=== PATIENT | male | born 1970 | race Caucasian/White ===

== ENCOUNTER 2021-05-05 19:25 | Outpatient (REF) | payer OTHER, SELFPAY ==
--- NOTE | ~2021-05-05 | MR_ITS ---
EXAMINATION: MR BRAIN WITHOUT CONTRAST CLINICAL INFORMATION: Intermittent numbness in right arm. COMPARISON: None. TECHNIQUE: Multiplanar, multisequence imaging of the brain was performed without contrast. Limited study with motion artifacts FINDINGS: No diffusion abnormalities are identified to suggest an acute or subacute infarct. The ventricles are normal in size. No mass effect or midline shift is seen. No brain parenchymal signal abnormality is noted. No extra-axial fluid collections are seen. The brainstem and cerebellum are normal. The gradient refocused acquisition is normal. The craniovertebral junction, marrow signal, and midline structures are normal. The major intracranial flow voids at the level of the [place] are preserved. The dural venous sinus flow voids are maintained. The mastoid air cells are well aerated. There is mild mucosal thickening in the ethmoid sinus air cells. MR/MR head/brain wo con IMPRESSION: Limited normal MRI of the brain. No acute process.
== END 2021-05-05 19:26 | disposition home or self-care (01) ==
LOC: HO.MRI 19:25
PROVIDERS: PCP Internal Medicine; Visit Provider Internal Medicine
DX: G45.9 Transient cerebral ischemic attack, unspecified (principal)
CPT/HCPCS: 70551

== ENCOUNTER 2021-05-26 14:17 | Outpatient (REF) | payer OTHER, SELFPAY ==
--- NOTE | ~2021-05-26 | US_ITS ---
EXAMINATION: US EXTRACRANIAL CAROTID DUPLEX, BILATERAL CLINICAL INFORMATION: TIA COMPARISON: None TECHNIQUE: Real-time ultrasound and Doppler techniques (integrating B-mode 2-D vascular images, Doppler spectral analysis and color-flow Doppler imaging) were utilized to interrogate the extracranial carotid arteries, the vertebral arteries and proximal subclavian arteries bilaterally. The degree of stenosis is determined by criteria similar to NASCET. FINDINGS: Right Side: 1. There is no significant atherosclerotic plaque seen in the bifurcation/proximal ICA region. 2. The common carotid artery PSV proximally is 140 cm/s and distally 82 cm/s. 3. The proximal internal carotid artery velocities are 62 cm/s systolic and 20 cm/s diastolic. 4. The proximal external carotid artery PSV is 95 cm/s. 5. The vertebral artery shows antegrade flow. 6. The subclavian artery waveforms are normal. Left Side: 1. There is no significant atherosclerotic plaque seen in the bifurcation/proximal ICA region. 2. The common carotid artery PSV proximally is 155 cm/s and distally 86 cm/s. 3. The proximal internal carotid artery velocities are 60 cm/s systolic and 12 cm/s diastolic. 4. The proximal external carotid artery PSV is 58 cm/s. 5. The vertebral artery shows antegrade flow. 6. The subclavian artery waveforms are normal. US/US carotid duplex BI IMPRESSION: 1. RIGHT: Normal right internal carotid artery without atherosclerotic plaque or hemodynamically significant stenosis. 2. LEFT: Normal left internal carotid artery without atherosclerotic plaque or hemodynamically significant stenosis.
== END 2021-05-26 14:18 | disposition home or self-care (01) ==
LOC: HO.US 14:17
PROVIDERS: Visit Provider Internal Medicine
DX: G45.9 Transient cerebral ischemic attack, unspecified (principal)
CPT/HCPCS: 93880

== ENCOUNTER 2022-04-18 08:33 | Day surgery (SDC) | payer OTHER, SELFPAY ==
[2022-04-11 15:44] VITALS: BMI 36.9
--- NOTE | 2022-04-17 09:09 | HO.ANESPROP2 ---
Documented by User: Anna Dickson NP 04/17/22 09:09 HPI - Anesthesia Eval Consult details Narrative: 51yo M for Colonoscopy [facility] Past Medical History Medical History Constipation Depression Diabetes Elevated cholesterol TSERING (obstructive sleep apnea) Peripheral neuropathy Smoker Social History Social History Patient Tobacco Use Status: Current everyday Tobacco user Are you DNR?: No Advance Directives: No Advance Directives Information Provided: Yes Nutrition Risks: No Nutritional Risk Meds Allergies Allergy/AdvReac Type Severity Reaction Status Date / Time No Known Allergies Allergy Unverified 07/15/20 16:04 [No Known Allergies*] Home Medications Medication Instructions Recorded Confirmed Last Taken Type betamethasone, augmented 0.05 % applic topical BID 07/31/20 07/31/20 Unknown History topical cream hydrocortisone 2.5 % topical cream applic topical BID PRN Rash 07/31/20 07/31/20 Unknown History ibuprofen 600 mg tablet 600 mg PO Q8H 07/31/20 07/31/20 Unknown History sertraline 25 mg tablet 25 mg PO QAM 07/31/20 07/31/20 Unknown History aspirin 81 mg tablet,delayed 81 mg PO DAILY 04/11/22 04/11/22 04/15/22 History release dulaglutide 4.5 mg/0.5 mL 4.5 mg subcut QWEEK 04/11/22 04/11/22 Unknown History subcutaneous pen injector (Trulicity) fenofibrate nanocrystallized 145 145 mg PO DAILY 04/11/22 04/11/22 Unknown History mg tablet gabapentin 300 mg capsule 300 mg PO DAILY 04/11/22 04/11/22 Unknown History metformin 500 mg tablet 500 mg PO DAILY 04/11/22 04/11/22 Unknown History methadone 5 mg/5 mL oral solution 10 mg PO BID 04/11/22 04/18/22 04/17/22 History Exam Exam Date and Time: April 17, 2022908 Height,Weight and Vital Signs: Height 6 ft 1 in Weight 127.006 kg Assessment and Plan Assessment Anesthesia Assessment: Chart Reviewed Documented by User: Kalli Gurrola MD 04/18/22 10:03 [facility] Past Medical History Medical History Constipation Depression Diabetes Elevated cholesterol TSERING (obstructive sleep apnea) Peripheral neuropathy Smoker Family History Family history of problems with anesthesia: No Surgical History History of Problems with Anesthesia: No Social History Social History Patient Tobacco Use Status: Current everyday Tobacco user Are you DNR?: No Advance Directives: No Advance Directives Information Provided: Yes Nutrition Risks: No Nutritional Risk Meds Allergies Allergy/AdvReac Type Severity Reaction Status Date / Time No Known Allergies Allergy Unverified 07/15/20 16:04 [No Known Allergies*] Home Medications Medication Instructions Recorded Confirmed Last Taken Type betamethasone, augmented 0.05 % applic topical BID 07/31/20 07/31/20 Unknown History topical cream hydrocortisone 2.5 % topical cream applic topical BID PRN Rash 07/31/20 07/31/20 Unknown History ibuprofen 600 mg tablet 600 mg PO Q8H 07/31/20 07/31/20 Unknown History sertraline 25 mg tablet 25 mg PO QAM 07/31/20 07/31/20 Unknown History aspirin 81 mg tablet,delayed 81 mg PO DAILY 04/11/22 04/11/22 04/15/22 History release dulaglutide 4.5 mg/0.5 mL 4.5 mg subcut QWEEK 04/11/22 04/11/22 Unknown History subcutaneous pen injector (Trulicity) fenofibrate nanocrystallized 145 145 mg PO DAILY 04/11/22 04/11/22 Unknown History mg tablet gabapentin 300 mg capsule 300 mg PO DAILY 04/11/22 04/11/22 Unknown History metformin 500 mg tablet 500 mg PO DAILY 04/11/22 04/11/22 Unknown History methadone 5 mg/5 mL oral solution 10 mg PO BID 04/11/22 04/18/22 04/17/22 History Exam Airway Mallampati Class: II TM Dist: >3cm Neck ROM: Full Assessment and Plan Assessment Anesthesia Assessment: Anesthesia Plan Discussed Final Anesthetic Review Family History of Problems with Anesthesia: No History of Problems with Anesthesia: No NPO: Yes ASA Class: III Final Preanesthetic Review: No Changes in Pt Med Stat, Meds/Allgs Chart Reviewed, Consent Obtained/Reviewed and Anes Risks/Benef Reviewed Patient Risk: Low Procedure Risk: Low Anesthetic Plan Anesthetic Plan: MAC: Disposition: Standard PACU
[2022-04-18 09:02] VITALS: BP 130/73; PULSE 67; RESP 20; TEMP 36.2; O2SAT 98
--- NOTE | 2022-04-18 09:15 | PC.NURSE ---
ls wheezes lower bases pt will receive resp tx
[2022-04-18] MEDS: Albuterol Sulfate (0.083%) 2.5 MG/3 ML VIAL.NEB INHALE (09:17)
[2022-04-18 09:19] VITALS: PULSE 60; RESP 16; O2SAT 100
[2022-04-18] MEDS: Lactated Ringers 1,000 ML 100 ML IVCONT (09:44)
[2022-04-18 10:06] LABS: Glucose, Whole Blood 122 mg/dL (60-115)
--- NOTE | 2022-04-18 10:07 | MHC.SHP ---
Pre-Procedural Eval Section A Date of Service: 04/18/22 Section B Chief Complaint: screening Details of Present Illness: see H&P no changes Relevant Family History (Specify if Yes): No Relevant Social History: None Medical History: No relevant PMH History of Previous Operations: No relevant previous surgery Allergies: Allergies Allergy/AdvReac Type Severity Reaction Status Date / Time No Known Allergies Allergy Unverified 07/15/20 16:04 [No Known Allergies*] Review of Systems Sugical H&P ROS: Negative: Constitution, Cardiovascular, Respiratory, Neurological, Psychiatric, Hem-Onc, Allergic/Immunologic, Gastrointestinal, Genitourinary, Musculoskeletal, Integumentary, Endocrine and Eyes/Ears/Nose/Throat Exam Surgical H&P Exam: Normal: HEENT, Normal: Heart, Normal: Lungs, Normal: Extremities, Normal: Abdomen, Normal: Skin and Normal: Neurological Plan Diagnosis/Plan: Unchanged I have reviewed the history and physical and performed a pertinent physical examination on my patient. No changes have occurred unless specified.
[2022-04-18 10:55] VITALS: BP 100/64; PULSE 75; RESP 18; TEMP 36.8; O2SAT 97
--- NOTE | 2022-04-18 10:55 | P.BOP_ITS ---
Brief Operative Note Date of Service: 04/18/22 Pre-op diagnosis: screening Post-op diagnosis: same Surgeon: Nj Finnegan Anesthesia: MAC Was an [employer] used for this Procedure?: No Estimated blood loss (mL): 0 Pathology: none sent Condition: stable Disposition: PACU
[2022-04-18 11:10] VITALS: BP 134/81; PULSE 61; RESP 18; TEMP 36.7; O2SAT 97
--- NOTE | 2022-04-18 12:39 | OP_ITS ---
SURGEON: Nj Finnegan MD INDICATIONS: Colon cancer screening. PREOPERATIVE DIAGNOSIS: POSTOPERATIVE DIAGNOSIS: PROCEDURE PERFORMED: Colonoscopy to the cecum. ESTIMATED BLOOD LOSS: COMPLICATIONS: ANESTHESIA: ASSISTANTS: SPECIMENS: MEDICATIONS: Monitored anesthesia care. DESCRIPTION OF PROCEDURE: The history and physical were performed. The risks and benefits of the procedure were explained to the patient. Informed consent was obtained. The patient was placed in the left lateral decubitus position. A digital rectal exam was performed and was found to be normal. The Olympus pediatric video colonoscope was introduced into the rectum and advanced to the cecum without difficulty. The cecum was identified by transillumination, palpation, and identification of ileocecal valve. Examination was performed. The scope was removed. He tolerated the procedure well and was taken to recovery area in stable condition. FINDINGS: The terminal ileum was not examined. The visualized colonic mucosa was normal. There was a large amount of liquid and some formed stool left, which limited the sensitivity examination for detection of small polyps. This was washed and suctioned as best possible, but the exam was basically nondiagnostic for small polyps because of the retained stool especially in the cecum, descending colon and sigmoid colon. Retroflexed examination showed internal hemorrhoids. There was some sigmoid diverticulosis to a mild degree. IMPRESSION: Colonoscopy negative for polyps, but limited exam as above. RECOMMENDATION: 1. Follow up as needed. 2. Repeat colonoscopy in 6-12 months with a 2 day prep. MD ABDIRIZAK Hays/BARBIEL / [phone]
== END 2022-04-18 11:44 | disposition home or self-care (01) ==
PROVIDERS: PCP Internal Medicine; Visit Provider Internal Medicine Gastroenterology
PROC: 0DJD8ZZ Inspection of Lower Intestinal Tract, Via Natural or Artificial Opening Endoscopic (ICD-10-PCS; CPT 45378; principal; 2022-04-18 09:40)
DX: Z12.11 Encounter for screening for malignant neoplasm of colon (principal); K57.30 Diverticulosis of large intestine without perforation or abscess without bleeding; K64.8 Other hemorrhoids; K59.03 Drug induced constipation; F11.90 Opioid use, unspecified, uncomplicated; G47.33 Obstructive sleep apnea (adult) (pediatric); F32.A Depression, unspecified; E78.00 Pure hypercholesterolemia, unspecified; E11.9 Type 2 diabetes mellitus without complications; G62.9 Polyneuropathy, unspecified; Z79.82 Long term (current) use of aspirin; Z79.84 Long term (current) use of oral hypoglycemic drugs; F17.210 Nicotine dependence, cigarettes, uncomplicated
CPT/HCPCS: G0121; 82947; 94640

== ENCOUNTER 2023-09-13 13:49 | Outpatient (REF) | payer OTHER, SELFPAY ==
[2023-09-13 16:58] LABS: Alanine Aminotransferase 15 U/L (0-40); Albumin Level 4.2 g/dL (3.5-5.0); Alkaline Phosphatase 118 U/L (39-117); Anion Gap 14 (12-20); Aspartate Amino Transferase 18 U/L (5-37); Bilirubin Total 0.2 mg/dL (0.0-1.0); Blood Urea Nitrogen 9 mg/dL (9-16); Calcium 9.8 mg/dL (8.4-10.2); Carbon Dioxide 27 mmol/L (22-29); Chloride 101 mmol/L (96-108); Estimated Glomerular Filt Rate > 60; Glucose Random 311 mg/dL (60-115); Potassium 4.1 mmol/L (3.3-5.1); Sodium 138 mmol/L (135-145); Total Protein 8.4 g/dL (6.5-8.0)
[2023-09-13 17:04] LABS: Creatinine Urine 244.55 mg/dL; Microalbum/Creatinine Ratio Ur 7.7 ug/mg cr (<30)
[2023-09-13 17:05] LABS: TSH reflex Free T4 1.81 uIU/mL (0.32-4.0)
[2023-09-13 17:08] LABS: Cholesterol 183 mg/dL (<200); HDL Cholesterol 26 mg/dL (>40); LDL Cholesterol Calculated 85 mg/dL (<100); Triglycerides 363 mg/dL (<150)
[2023-09-13 17:24] LABS: Folate 7.8 ng/mL (> or = 4.0); Vitamin B12 294 pg/mL (200-900)
[2023-09-13 18:58] LABS: Reflex LDLD? No
[2023-09-14 02:31] LABS: CT PCR NOT DETECTED (Not Detect.); NG PCR NOT DETECTED (Not Detect.)
[2023-09-14 08:27] LABS: HBc Num1 0.11 S/CO (0.00-0.79); HBsAGNum1 0.33 S/CO (0.00-0.99); HIV AB/AG Nonreactive (Nonreactive); HIV Num 1 0.06 S/CO (0.00-0.99); Hepatitis B Core Antibody Nonreactive (Nonreactive); Hepatitis B Surface Antigen Negative (Negative); ~HepC Num1 0.42 S/CO (0.00-0.79); ~Hepatitis B Surface Antibody REACTIVE (Nonreactive); ~Hepatitis C Antibody Nonreactive (Nonreactive)
[2023-09-14 08:28] LABS: Syphilis Screen Nonreactive (Nonreactive)
== END 2023-09-13 13:50 | disposition home or self-care (01) ==
LOC: HO.HHCL 13:49
PROVIDERS: Visit Provider Family Medicine
DX: Z00.00 Encounter for general adult medical examination without abnormal findings (principal); E11.42 Type 2 diabetes mellitus with diabetic polyneuropathy; Z20.2 Contact with and (suspected) exposure to infections with a predominantly sexual mode of transmission
CPT/HCPCS: 0353U; 36415; 80053; 80061; 82043; 82570; 82607; 82746; 84443; 86704; 86706; 86780; 86803; 87340; 87389

== ENCOUNTER 2025-01-20 11:56 | Outpatient (REF) | payer OTHER, SELFPAY ==
--- NOTE | ~2025-01-20 | XR_ITS ---
EXAMINATION: XR FOOT 3 OR MORE VIEWS RIGHT, XR FOOT 3 OR MORE VIEWS LEFT HISTORY: bilateral foot pain COMPARISON: There are no prior studies available for comparison. FINDINGS: Six views of the bilateral feet are submitted. Osseous mineralization is normal. There is no fracture or dislocation. There are degenerative changes involving the intertarsal joints. There is a moderate-sized left plantar calcaneal spur and a small right plantar calcaneal spur. The soft tissues are unremarkable. XR/XR foot LT min 3V IMPRESSION: Bilateral plantar calcaneal spurs. Degenerative change of the mid feet. Electronically signed by: Huy Fox MD 01/20/2025 12:56 PM EDT
--- NOTE | ~2025-01-20 | XR_ITS ---
EXAMINATION: XR FOOT 3 OR MORE VIEWS RIGHT, XR FOOT 3 OR MORE VIEWS LEFT HISTORY: bilateral foot pain COMPARISON: There are no prior studies available for comparison. FINDINGS: Six views of the bilateral feet are submitted. Osseous mineralization is normal. There is no fracture or dislocation. There are degenerative changes involving the intertarsal joints. There is a moderate-sized left plantar calcaneal spur and a small right plantar calcaneal spur. The soft tissues are unremarkable. XR/XR foot RT min 3V IMPRESSION: Bilateral plantar calcaneal spurs. Degenerative change of the mid feet. Electronically signed by: Huy Fox MD 01/20/2025 12:56 PM EDT
[2025-01-20 13:54] LABS: Alanine Aminotransferase 18 U/L (0-40); Albumin Level 4.2 g/dL (3.5-5.0); Alkaline Phosphatase 90 U/L (39-117); Anion Gap 15 (12-20); Aspartate Amino Transferase 23 U/L (5-37); Bilirubin Total 0.2 mg/dL (0.0-1.0); Blood Urea Nitrogen 11 mg/dL (9-16); Calcium 9.5 mg/dL (8.4-10.2); Carbon Dioxide 23 mmol/L (22-29); Chloride 107 mmol/L (96-108); Cholesterol 149 mg/dL (<200); Estimated Glomerular Filt Rate > 60; Glucose Random 168 mg/dL (60-115); HDL Cholesterol 27 mg/dL (>40); LDL Cholesterol Calculated 64 mg/dL (<100); Potassium 3.9 mmol/L (3.3-5.1); Sodium 141 mmol/L (135-145); Triglycerides 290 mg/dL (<150)
[2025-01-20 14:16] LABS: TSH reflex Free T4 0.35 uIU/mL (0.32-4.0)
[2025-01-20 14:24] LABS: Folate 7.6 ng/mL (> or = 4.0); Vitamin B12 341 pg/mL (200-900)
[2025-01-20 14:30] LABS: Creatinine Urine 267.28 mg/dL; Microalbum/Creatinine Ratio Ur 8.2 ug/mg cr (<30)
[2025-01-20 16:57] LABS: Reflex LDLD? No
== END 2025-01-20 11:57 | disposition home or self-care (01) ==
LOC: HO.HHCL 11:56
PROVIDERS: Visit Provider Family Medicine
DX: E11.65 Type 2 diabetes mellitus with hyperglycemia (principal); M79.671 Pain in right foot; M79.672 Pain in left foot; G89.29 Other chronic pain
CPT/HCPCS: 36415; 73630; 80053; 80061; 82043; 82570; 82607; 82746; 84443

== ENCOUNTER → 2025-01-20 12:09 | Outpatient (BNV) | payer OTHER, SELFPAY | PROVIDERS: Visit Provider Radiology Diagnostic Radiology | DX: M77.31 Calcaneal spur, right foot (principal); M77.32 Calcaneal spur, left foot | CPT/HCPCS: 73630 ==